=== PATIENT | male | born 1990 | race Two or more races ===

== ENCOUNTER 2016-11-23 19:15 | Emergency (ER) | payer MEDICAID ==
[~2016-11-23] VITALS: Ht 165.1 cm; Wt 80.8 kg
[2016-11-23 19:32] VITALS: BP 129/82
[2016-11-23 20:40] LABS: ACETAMINOPHEN < 2 mcg/mL (10-30)
[2016-11-23 21:27] LABS: DAU SCREEN DISCLAIMER
== END 2016-11-23 22:23 | disposition home or self-care (01) ==
LOC: ED 21:29
DX: F20.9 Schizophrenia, unspecified (principal); F31.9 Bipolar disorder, unspecified; L81.8 Other specified disorders of pigmentation
CPT/HCPCS: 36415; 80307; 80329; 99284; G0480